=== PATIENT | male | born 1990 | race Caucasian/White ===

== ENCOUNTER 2018-04-03 10:35 | Emergency (ER) | payer MEDICAID ==
[~2018-04-03] VITALS: Ht 167.6 cm; Wt 90.7 kg
[2018-04-03 10:39] VITALS: BP 145/70
--- NOTE | 2018-04-03 10:42 | NUR ---
PT AMBULATES TO BED 10
--- NOTE | 2018-04-03 10:45 | NUR ---
27Y/M BIB SELF FOR LACERATION TO RIGHT LITTLE FINGER; BLEEDING CONTROLLED; + CMS; < 3 CAP REFILL AT THIS TIME; BED DOWN; BEDRAILS UP X 1; ER MD AWARE AND NOTIFIED OF PT STATUS. HX; NONE
[2018-04-03] MEDS ORDERED: LIDOCAINE 1% ***ER ONLY *** 50 ML ONE (11:32)
[2018-04-03] MEDS ORDERED: MORPHINE SULFATE 2 MG/ML SYR IM ONE (11:35)
[2018-04-03] MEDS ORDERED: cefTRIAXone 1,000 MG in LIDOCAINE 1% ***ER ONLY *** 2.1 ML IM ONE (11:35)
--- NOTE | 2018-04-03 12:00 | NUR ---
XRAY AT BEDSIDE
--- NOTE | 2018-04-03 13:25 | NUR ---
Patient to be transferred to [facility]. Is being transferred due to HIGHER LEVEL OF CARE. Receiving facility has accepting physician and available space. ER physician has signed transfer form. Patient or responsible green party has agreed to transfer and signed form. Patient belongings inventoried and will be sent with patient. Copy of nursing notes, lab reports, EKG, Physicians Orders and X-rays to be sent with patient. Report called to ED, RN at receiving facility. [facility] has been called for transfer. ETA is 30 MIN.
[2018-04-03 13:26] VITALS: BP 141/71
== END 2018-04-03 13:25 | disposition short-term general hospital (02) ==
LOC: MED 10:35
DX: S62.616A Displaced fracture of proximal phalanx of right little finger, initial encounter for closed fracture (principal); W27.8XXA Contact with other nonpowered hand tool, initial encounter; Y93.89 Activity, other specified; Y92.89 Other specified places as the place of occurrence of the external cause; Y99.8 Other external cause status
CPT/HCPCS: 73130; 90471; 90715; 96372; 99285; J0696; J2001; J2270; Q0092